=== PATIENT | male | born 2005 | race Two or more races ===

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

== ENCOUNTER 2024-06-05 12:36 | Outpatient (CLI) | payer MEDICAID, SELFPAY ==
[2024-06-05] VITALS (10 sets, daily range): BP systolic 118–143; BP diastolic 49–79; PULSE 94–130; RESP 18–30; TEMP 36.6–36.8; O2SAT 95–100
--- NOTE | 2024-06-05 13:00 | XR_ITS ---
Examination: MRI brain without intravenous contrast. Date and time of exam: June 05, 2024 1508 hours INDICATIONS: Confusion headaches balance issues 3 months Technique: Multiple axial and sagittal images of the brain obtained. Siemens high-resolution 1.5 Jasmin short bore scanners utilized. Sagittal sections, T1-weighted, TR 500, TE 14, are performed. Axial sections proton-density and T2-weighted have been obtained. Inversion recovery axial images, TR 9, 260, TE 111, TI 2500. Diffusion weighted images, axial sections, TR 4800, TE 128, B value 1000 Axial sections, ADC map, TR 4800, TE 128 Findings: Images are severely degraded by continual patient motion Ventricles are not enlarged No gross mass effect IMPRESSION: Images are severely degraded by patient motion
[2024-06-05] MEDS: MIDAZOLAM INJ 1 MG/ML VIAL 2 ML 3 MG IV (14:50)
[2024-06-05] MEDS: SODIUM CHLORIDE 0.9% 500 ML 500 ML 20 ML IV (14:50)
[2024-06-05] MEDS: fentaNYL CIT INJ 50 mCg/ML AMP 2ML IV (14:50)
--- NOTE | 2024-06-05 16:44 | PC.NURSE ---
patient was taken to CT to attempt CT scan, we tried convincing patient to move over to the bed to complete the CT scan but patient did not want to, after successfully getting patient to the CT bed the patient did not want to lay down flat, after attempting multiple times i decided to call the father hoping that would change things a little, when the father came to CT to try to talk to the son to lay down flat and stay calm the patient could not stay calm and lay down flat. CT was unable to be done even after parent being present.
== END 2024-06-05 16:25 | disposition home or self-care (01) ==
PROVIDERS: PCP Nurse Practitioner Family; Referring Provider Internal Medicine Gastroenterology; Visit Provider Internal Medicine Gastroenterology
DX: R19.7 Diarrhea, unspecified (principal); R41.3 Other amnesia
CPT/HCPCS: 70551; 82565; 84520; 99152; J2250; J3010; J7040

== ENCOUNTER 2024-08-28 09:40 | Day surgery (SDC) | payer MEDICAID, SELFPAY ==
[2024-08-28] VITALS (7 sets, daily range): BP systolic 104–135; BP diastolic 60–75; PULSE 70–80; RESP 15–18; TEMP 36.4–36.9; O2SAT 95–100; BMI 20.7
--- NOTE | 2024-08-28 10:50 | SUR.PREOP ---
Mother states patient only drank 2 cups of bowel prep and that stool is lose and not clear. She also states that he drank about 18oz of water this morning. Dr. Myers and endo charge nurse Gabby made aware of this. No new orders received. Dr. Myers states he will speak with mother prior to procedure.
[2024-08-28] MEDS: SODIUM CHLORIDE 0.9% 500 ML 500 ML 20 ML IV (12:55)
--- NOTE | 2024-08-28 13:06 | SUR.PHASEII ---
Pt. arrived to recovery via gurney, eyes open, responds to verbal commands, VSS, no c/o pain or nausea at this time, lung sounds clear, equal expansion alex., report received from Isis MARIANO.
--- NOTE | 2024-08-28 13:18 | SUR.PHASEII ---
1318: Report received from Audra MARIANO. Pt. AAOx4, vitals stable, breathing unlabored, no complaint of pain or nausea, no dressing in place, no active bleed noted.
--- NOTE | 2024-08-28 13:20 | SUR.PREOP ---
1230 Order obtained for EGD procedure only, due to pt not completing prep. Jacklyn, airplane flight attendant supervisor, interpreting for both Dr Myers and Dr White. Pt's mother is legal guardian, due to pt hx of Schizophrenia. Questions answered.
--- NOTE | 2024-08-28 13:23 | SUR.PHASEII ---
Gave report on pt. s/p procedure to Blanca MARIANO.
--- NOTE | 2024-08-28 13:50 | SUR.PHASEII ---
1350: Pt. AAOx4, vitals stable, breathing unlabored, no complaint of pain or nausea, no dressing in place, no active bleed noted, pt. tolerated sips of water well, pt. ambulated to wheelchair with steady gait and no assist, no complications, gave discharge instructions to the pt. and his mom, both verbalized understanding and had no further quesitons. Pt. left with all personal belongings.
== END 2024-08-28 13:50 | disposition home or self-care (01) ==
PROVIDERS: PCP Nurse Practitioner Family; Referring Provider Internal Medicine Gastroenterology; Visit Provider Internal Medicine Gastroenterology
PROC: (CPT 43239; 2024-08-28 12:15)
DX: K29.70 Gastritis, unspecified, without bleeding (principal); K31.89 Other diseases of stomach and duodenum; K29.50 Unspecified chronic gastritis without bleeding
CPT/HCPCS: 43239; J7040